=== PATIENT | male | born 1940 | race Caucasian/White ===

== ENCOUNTER 2023-06-03 08:05 | Day surgery (SDC) | payer MEDICARE, BC ==
[2023-06-03] MEDS: Polymyxin B/Trimethoprim 10 ML Bottle EYELF SCH (07:43)
[2023-06-03] MEDS: Brimonidine 0.2% Ophth Soln 5 ML Bottle EYELF SCH (07:47)
[2023-06-03] MEDS: Phenylephrine 2.5% Ophth Soln 2 ML Bot EYELF SCH (07:52)
[2023-06-03] MEDS: Tropicamide 1% Ophth Soln 3 ML Bottle EYELF SCH (07:57)
[~2023-06-03 08:05] MED LIST: Ondansetron 4 MG/2 ML SDV IVPUSH PRN
[2023-06-03] MEDS: Tetracaine HCl/PF 0.5% 4 ML Bottle EYEBOTH SCH (08:45)
[2023-06-03] MEDS: Lidocaine 1% PF 2 ML SDV INJECT SCH (09:05)
[2023-06-03] MEDS: Pilocarpine 4% Ophth Soln 15 ML Bot EYELF SCH (09:26)
[2023-06-03] MEDS: Cefuroxime 10 MG/ML SYRINGE EYELF SCH (09:26)
[2023-06-03 09:41] VITALS: BP 125/73; PULSE 71
== END 2023-06-03 09:37 | disposition home or self-care (01) ==
LOC: JD.SDS 08:05
PROVIDERS: ATTEND Ophthalmology
DX: E11.36 Type 2 diabetes mellitus with diabetic cataract (principal); H25.812 Combined forms of age-related cataract, left eye; H02.831 Dermatochalasis of right upper eyelid; H16.103 Unspecified superficial keratitis, bilateral; H02.834 Dermatochalasis of left upper eyelid; H16.223 Keratoconjunctivitis sicca, not specified as Sjogren's, bilateral; H21.81 Floppy iris syndrome; E78.00 Pure hypercholesterolemia, unspecified; Z96.1 Presence of intraocular lens; Z79.899 Other long term (current) drug therapy; Z87.891 Personal history of nicotine dependence; Z98.890 Other specified postprocedural states; Z88.3 Allergy status to other anti-infective agents; Z88.6 Allergy status to analgesic agent; Z88.8 Allergy status to other drugs, medicaments and biological substances
CPT/HCPCS: 66982; A9270; J0697; 00142; 99100; J3490